=== PATIENT | female | born 1965 | race Caucasian/White ===

== ENCOUNTER 2017-10-04 19:13 | Inpatient (IN) | payer MEDICAID, OTHER ==
[2017-10-04] MEDS: ALBUTEROL 0.5% (NEB) 2.5 MG/0.5 ML AMP INH (19:42)
[2017-10-04] MEDS: IPRATROPIUM (NEB) 0.5 MG/2.5 ML AMP INH (19:43)
[2017-10-04 20:02] LABS: ADD MAN DIFF? NO
[2017-10-04 20:06] LABS: WHITE BLOOD COUNT 13.7 10^3/ul (4.8-10.8)
[2017-10-04 20:06] LABS: BASOPHILS % 0.2 % (0.0-2.0); HEMATOCRIT 42.5 % (37.0-47.0); HEMOGLOBIN 14.1 g/dl (12.0-16.0); LYMPHOCYTES # 1.2 10^3/ul (0.8-2.9); MEAN CORPUSCULAR HEMOGLOBIN 28.2 pg (29.0-33.0); MEAN CORPUSCULAR HGB CONC 33.2 g/dl (32.0-37.0); MEAN PLATELET VOLUME 10.1 fl (7.4-10.4); MONOCYTE # 0.6 10^3/ul (0.3-0.9); MONOCYTES % 4.4 % (0.0-11.0); NEUTROPHIL # 11.8 10^3/ul (1.6-7.5); PLATELET COUNT 283 10^3/UL (140-415); RED CELL DISTRIBUTION WIDTH 12.9 % (11.5-14.5)
[2017-10-04 20:21] LABS: ANION GAP 15 (8-16); BLOOD UREA NITROGEN 16 mg/dl (7-20); CALCIUM 9.1 mg/dl (8.4-10.2); CARBON DIOXIDE 28 mmol/L (21-31); CHLORIDE 98 mmol/L (97-110); GLUCOSE 123 mg/dl (70-220); POTASSIUM 3.5 mmol/L (3.5-5.1); SODIUM 137 mmol/L (135-144)
[2017-10-04] MEDS: SODIUM CHLORIDE 0.9% 1L BAG IV* (20:22)
[2017-10-04] MEDS: ACETAMINOPHEN 325 MG TAB PO (20:25)
[2017-10-04 20:29] LABS: LACTIC ACID 2.7 mmol/L (0.5-2.0)
[2017-10-04] MEDS: MAGNESIUM SULFATE 2 GM/50 ML 50 ML IVPB (20:37)
[2017-10-04] MEDS: DEXAMETHASONE 10 MG/ML 1 ML INJ IV (20:37)
[2017-10-04] MEDS: CEFTRIAXONE 1 GM/50 ML (PMX) 50 ML IVPB (20:57)
[2017-10-04] MEDS ORDERED: ONDANSETRON 4 MG INJ IV ×2 (21:00→22:00)
[2017-10-04] MEDS ORDERED: ACETAMINOPHEN 325 MG TAB PO ×2 (21:00→22:00)
[2017-10-04] MEDS: AZITHROMYCIN 500MG/NS (PMX) 250 ML IV (21:05)
[2017-10-04] MEDS: SOD CHLORIDE 0.9% 1,000 ML IV (21:43)
[2017-10-04 21:57] LABS: LACTIC ACID 1.9 mmol/L (0.5-2.0)
[2017-10-04] MEDS ORDERED: morphine 2 MG INJ IV (22:00)
[2017-10-04] MEDS ORDERED: DOCUSATE SODIUM 100 MG CAP PO (22:00)
[2017-10-04] MEDS ORDERED: ZOLPIDEM 5 MG TAB PO (22:00)
[2017-10-04] MEDS ORDERED: NACL 0.9% 3 ML SYG IV (22:00)
[2017-10-04] MEDS ORDERED: HYDROCODONE/APAP (5/325) TAB PO (22:00)
[2017-10-04] MEDS ORDERED: AZITHROMYCIN 500MG/NS (PMX) 250 ML IVPB (22:00)
[2017-10-04] MEDS ORDERED: MAGNESIUM HYDROXIDE 30ML CUP PO (22:00)
[2017-10-04 22:29] LABS: ADD UMIC YES; UR ASCORBIC ACID NEGATIVE (NEGATIVE); UR BILIRUBIN (Dip) NEGATIVE (NEGATIVE); UR BLOOD (Dip) 1+ mg/dL (NEGATIVE); UR CLARITY CLEAR (CLEAR); UR COLOR YELLOW (YELLOW); UR GLUCOSE (Dip) NEGATIVE (NEGATIVE); UR KETONES (Dip) NEGATIVE (NEGATIVE); UR LEUKOCYTE ESTERASE (Dip) NEGATIVE Leu/ul (NEGATIVE); UR NITRITE (Dip) NEGATIVE (NEGATIVE); UR RBC 1 /HPF (0-5); UR SPECIFIC GRAVITY (Dip) 1.013 (1.003-1.030); UR TOTAL PROTEIN (Dip) NEGATIVE (NEGATIVE); UR UROBILINOGEN (Dip) NEGATIVE (NEGATIVE); UR WBC 0 /HPF (0-5)
[2017-10-04] MEDS ORDERED: CEFTRIAXONE 1 GM/50 ML (PMX) 50 ML IVPB (23:00)
[2017-10-05 00:26] LABS: LACTIC ACID 3.1 mmol/L (0.5-2.0)
[2017-10-05] MEDS: ALBUTEROL/IPRATROPIUM (NEB) 3 ML AMP HHN ×3 (02:30→19:13)
[2017-10-05 06:10] LABS: ADD MAN DIFF? NO
[2017-10-05 06:15] LABS: BASOPHILS % 0.1 % (0.0-2.0); HEMATOCRIT 36.1 % (37.0-47.0); HEMOGLOBIN 12.1 g/dl (12.0-16.0); LYMPHOCYTES # 1.1 10^3/ul (0.8-2.9); LYMPHOCYTES % 6.1 % (15.0-51.0); MEAN CORPUSCULAR HEMOGLOBIN 28.7 pg (29.0-33.0); MEAN CORPUSCULAR HGB CONC 33.5 g/dl (32.0-37.0); MEAN CORPUSCULAR VOLUME 85.5 fl (82.0-101.0); MEAN PLATELET VOLUME 10.4 fl (7.4-10.4); MONOCYTE # 0.7 10^3/ul (0.3-0.9); MONOCYTES % 4.1 % (0.0-11.0); NEUTROPHIL # 15.5 10^3/ul (1.6-7.5); NEUTROPHILS % 88.7 % (39.0-77.0); PLATELET COUNT 242 10^3/UL (140-415); RED BLOOD COUNT 4.22 10^6/ul (4.20-5.40); RED CELL DISTRIBUTION WIDTH 13.2 % (11.5-14.5)
[2017-10-05 06:15] LABS: WHITE BLOOD COUNT 17.5 10^3/ul (4.8-10.8)
[2017-10-05 06:37] LABS: ANION GAP 13 (8-16); BLOOD UREA NITROGEN 10 mg/dl (7-20); CALCIUM 8.7 mg/dl (8.4-10.2); CARBON DIOXIDE 26 mmol/L (21-31); CHLORIDE 109 mmol/L (97-110); CREATININE 0.48 mg/dl (0.44-1.00); GLUCOSE 203 mg/dl (70-220); MAGNESIUM 2.6 mg/dl (1.7-2.5); PHOSPHORUS 2.9 mg/dl (2.5-4.9); POTASSIUM 4.5 mmol/L (3.5-5.1); SODIUM 143 mmol/L (135-144)
[2017-10-05 06:49] LABS: FREE THYROXINE INDEX (Calc) 1.91 ug/ml (0.65-3.89); T3 UPTAKE 35.4 % (23.5-40.5); T4 (THYROXINE) 5.4 ug/dl (5.5-11.0)
[2017-10-05 06:55] LABS: LACTIC ACID 2.9 mmol/L (0.5-2.0)
[2017-10-05 07:18] LABS: HEMOGLOBIN A1C 5.7 % (0-5.9)
[2017-10-05] MEDS: SOD CHLORIDE 0.9% 1,000 ML IV ×3 (10:21→20:34)
[2017-10-05] MEDS: METHYLPREDNISOLONE 40 MG INJ IV ×4 (10:50→23:50)
[2017-10-05] MEDS: CEFTRIAXONE 1 GM/50 ML (PMX) 50 ML IVPB (20:35)
[2017-10-05] MEDS: AZITHROMYCIN 500MG/NS (PMX) 250 ML IVPB (22:27)
[2017-10-06] MEDS: METHYLPREDNISOLONE 40 MG INJ IV ×3 (05:33→17:34)
[2017-10-06 05:51] LABS: ADD MAN DIFF? NO
[2017-10-06 05:57] LABS: WHITE BLOOD COUNT 14.9 10^3/ul (4.8-10.8)
[2017-10-06 05:57] LABS: BASOPHILS % 0.1 % (0.0-2.0); HEMATOCRIT 36.8 % (37.0-47.0); HEMOGLOBIN 12.1 g/dl (12.0-16.0); LYMPHOCYTES # 1.1 10^3/ul (0.8-2.9); LYMPHOCYTES % 7.2 % (15.0-51.0); MEAN CORPUSCULAR HEMOGLOBIN 28.6 pg (29.0-33.0); MEAN CORPUSCULAR HGB CONC 32.9 g/dl (32.0-37.0); MEAN PLATELET VOLUME 10.4 fl (7.4-10.4); MONOCYTE # 0.3 10^3/ul (0.3-0.9); MONOCYTES % 1.7 % (0.0-11.0); NEUTROPHIL # 13.4 10^3/ul (1.6-7.5); NEUTROPHILS % 89.9 % (39.0-77.0); PLATELET COUNT 271 10^3/UL (140-415); RED BLOOD COUNT 4.23 10^6/ul (4.20-5.40); RED CELL DISTRIBUTION WIDTH 13.2 % (11.5-14.5)
[2017-10-06 06:22] LABS: CHOL/HDL RATIO 2.4 RATIO; CHOLESTEROL 159 mg/dl (100-200); HDL CHOLESTEROL 65 mg/dl (37-92); LDL CHOLESTEROL,CALCULATED 83 mg/dl; MAGNESIUM 2.1 mg/dl (1.7-2.5); TRIGLYCERIDES 53 mg/dl (0-149)
[2017-10-06 06:22] LABS: PHOSPHORUS 3.5 mg/dl (2.5-4.9)
[2017-10-06 06:23] LABS: ALANINE AMINOTRANSFERASE 19 IU/L (13-69); ALBUMIN 3.1 g/dl (3.3-4.9); ALBUMIN/GLOBULIN RATIO 1.06; ALKALINE PHOSPHATASE 64 IU/L (42-121); ANION GAP 13 (8-16); ASPARTATE AMINO TRANSFERASE 10 IU/L (15-46); BILIRUBIN,INDIRECT 0.1 mg/dl (0-1.1); BILIRUBIN,TOTAL 0.1 mg/dl (0.2-1.3); BLOOD UREA NITROGEN 9 mg/dl (7-20); CALCIUM 9.1 mg/dl (8.4-10.2); CARBON DIOXIDE 27 mmol/L (21-31); CHLORIDE 111 mmol/L (97-110); CREATININE 0.47 mg/dl (0.44-1.00); GLUCOSE 153 mg/dl (70-220); POTASSIUM 4.8 mmol/L (3.5-5.1); SODIUM 146 mmol/L (135-144)
[2017-10-06] MEDS: ALBUTEROL/IPRATROPIUM (NEB) 3 ML AMP HHN ×3 (07:50→19:42)
[2017-10-06] MEDS: SOD CHLORIDE 0.9% 1,000 ML IV (09:16)
[2017-10-06] MEDS: CEFTRIAXONE 1 GM/50 ML (PMX) 50 ML IVPB (20:07)
[2017-10-06] MEDS: AZITHROMYCIN 500MG/NS (PMX) 250 ML IVPB (21:28)
[2017-10-07] MEDS: METHYLPREDNISOLONE 40 MG INJ IV ×2 (00:07→05:53)
[2017-10-07] MEDS: ALBUTEROL/IPRATROPIUM (NEB) 3 ML AMP HHN (07:46)
[2017-10-07] MEDS: ENOXAPARIN 40 MG/0.4 ML SYG SC (08:13)
== END 2017-10-07 14:45 | disposition home or self-care (01) | DRG 872 ==
LOC: MS2 21:02 → E/R 19:13
DX: A41.9 Sepsis, unspecified organism (principal); J45.901 Unspecified asthma with (acute) exacerbation; E87.2 Acidosis; J20.9 Acute bronchitis, unspecified; E66.9 Obesity, unspecified; Z68.33 Body mass index [BMI] 33.0-33.9, adult
CPT/HCPCS: 36415; 71045; 80048; 80053; 80061; 81001; 83036; 83605; 83735; 84100; 84436; 84479; 85025; 87040; 87400; 94640; 94644; 94664; 96374; 96375; 99291-25